=== PATIENT | female | born 1995 | race Caucasian/White ===

== ENCOUNTER 2017-08-25 16:37 | Emergency (ER) | payer OTHER ==
[2017-08-25 17:10] LABS: Pregnancy Test - Urine (BHCG) Negative (Negative); Pregu Control Background? CLEAR/WHITE (CLR/WHITE); Pregu Control Bar Appear? YES (CONTROL BAR); Specific Gravity 1.025 (1.002-1.036)
--- NOTE | 2017-08-25 18:03 | CT ---
CT HEAD NONCONTRAST 08/25/17 INDICATION: Posttraumatic pain. FINDINGS: There is no ventriculomegaly, mass effect, midline shift or acute intracranial hemorrhage. IMPRESSION: No acute intracranial abnormalities. POS: C
--- NOTE | 2017-08-25 18:12 | RAD ---
LEFT GREAT TOE: 08/25/17 HISTORY: Trauma with great toe pain. There is a fracture of the tuft of the distal phalanx of the great toe which is probably acute. Clini levar correlation as to whether patient's pain is specifically relates to this area. IMPRESSION: Probable acute tuft fracture of the distal phalanx of the great toe. POS: JUAN
== END 2017-08-25 18:22 | disposition home or self-care (01) ==
LOC: SCSER 16:37
DX: S06.0X0A Concussion without loss of consciousness, initial encounter (principal); S92.422A Displaced fracture of distal phalanx of left great toe, initial encounter for closed fracture; V89.2XXA Person injured in unspecified motor-vehicle accident, traffic, initial encounter; W22.11XA Striking against or struck by driver side automobile airbag, initial encounter
CPT/HCPCS: 70450; 81025